=== PATIENT | male | born 1970 | race Two or more races ===

== ENCOUNTER 2023-11-07 19:03 | Emergency (ER) | payer BC ==
[2023-11-07] MEDS: Ketorolac 30 MG/ML SDV IVPUSH ONE (20:07)
[2023-11-07 20:10] LABS: APPEARANCE,URINE CLEAR; BILIRUBIN,URINE NEGATIVE (NEGATIVE); COLOR,URINE YELLOW; GLUCOSE,URINE >=1000 mg/dL (NEGATIVE); KETONES,URINE 15 mg/dL (NEGATIVE); LEUKOCYTE ESTERASE,URINE NEGATIVE (NEGATIVE); NITRITE,URINE NEGATIVE (NEGATIVE); OCCULT BLOOD,URINE TRACE-INTACT (NEGATIVE); PROTEIN,URINE NEGATIVE (NEGATIVE); UROBILINOGEN,URINE 0.2 EU/dL (<2.0)
[2023-11-07] MEDS: Sodium Chloride 0.9% 2.5 ML Syringe FLUSH PRN (20:14)
[2023-11-07] MEDS: Sodium Chloride 0.9% 1,000 ML IV ONE ×2 (20:14→21:10)
[2023-11-07] MEDS: Sodium Chloride 0.9% 10 ML Syringe FLUSH PRN (20:14)
[2023-11-07 20:17] LABS: BACTERIA,URINE RARE (NEGATIVE); EPITHELIAL CELLS,URINE RARE (NONE-FEW)
[2023-11-07 20:19] LABS: BASOPHILS ABSOLUTE AUTO 0.07 K/uL (0.00-0.20); BASOPHILS PERCENT AUTO 0.5 % (0.0-1.0); EOSINOPHILS ABSOLUTE AUTO 0.01 K/uL (0.00-0.45); EOSINOPHILS PERCENT AUTO 0.1 % (0.0-6.0); HEMATOCRIT 53.4 % (42.0-52.0); HEMOGLOBIN 17.8 g/dL (14.0-18.0); IMMATURE GRAN ABSOLUTE AUTO 0.06 K/uL (0.00-0.05); IMMATURE GRAN PERCENT AUTO 0.4 % (0.0-0.4); LYMPHOCYTES ABSOLUTE AUTO 1.13 K/uL (1.00-4.80); LYMPHOCYTES PERCENT AUTO 7.7 % (24.0-44.0); MEAN CORPUSCULAR HEMOGLOBIN 28.4 pg (28.0-32.0); MEAN CORPUSCULAR HGB CONC 33.3 g/dL (32.0-36.0); MEAN CORPUSCULAR VOLUME 85.3 fL (83.0-99.0); MEAN PLATELET VOLUME 9.6 fL (9.4-12.4); MONOCYTES PERCENT AUTO 4.1 % (0.0-8.0); NEUTROPHILS ABSOLUTE AUTO 12.77 K/uL (1.80-7.70); NEUTROPHILS PERCENT AUTO 87.2 % (41.0-71.0); PLATELET COUNT,PLT 333 K/uL (150-400); RED BLOOD CELL COUNT 6.26 M/uL (4.52-5.90); WHITE BLOOD CELL COUNT,WBC 14.64 K/uL (3.9-11.3)
[2023-11-07 20:44] LABS: A/G RATIO 1.2 (0.9-1.6); ALBUMIN 4.5 g/dL (3.4-5.0); BILIRUBIN TOTAL 0.9 mg/dL (0.2-1.0); CALCIUM 9.8 mg/dL (8.5-10.1); CARBON DIOXIDE,CO2 25.8 mmol/L (21.0-32.0); CREATININE 1.5 mg/dL (0.8-1.3); EST CRCL DRUG DOSING (CG) 64.36 mL/min; POTASSIUM,K 3.7 mmol/L (3.5-5.1); PROTEIN TOTAL,TP 8.4 g/dL (6.4-8.2)
[2023-11-07] MEDS: Ondansetron 4 MG/2 ML SDV IVPUSH ONE (21:01)
[2023-11-07] MEDS: Morphine 4 MG/ML Syringe IVPUSH ONE (21:04)
[2023-11-07] MEDS: Acetaminophen/HYDROcodone 325-5 MG Tab PO ONE ×2 (21:10→23:45)
[2023-11-07 21:14] LABS: BASE EXCESS VENOUS -2.1 (-2.0-3.0); PH,VENOUS 7.38 (7.31-7.41)
[2023-11-07] MEDS: Sodium Chloride 0.9% 2,000 ML IV ONE (22:29)
[2023-11-07] MEDS ORDERED: 50% Dextrose in Water 50 ML Syringe IVPUSH PRN (23:01)
[2023-11-07] MEDS ORDERED: Glucagon,Human Recombinant 1 MG Vial IM PRN (23:01)
[2023-11-07] MEDS: Insulin Regular, Human 100 Units/ML 10 ML Vial IVPUSH ONE (23:07)
[2023-11-07] MEDS ORDERED: Morphine 2 MG/ML SYRINGE IVPUSH PRN (23:37)
[2023-11-07 23:47] LABS: HEMOGLOBIN A1C 13.3 %
[2023-11-08] MEDS: cefTRIAXone 2 GM in Sodium Chloride 0.9% 50 ML IV ONE (00:29)
[2023-11-08] MEDS ORDERED: Glucagon,Human Recombinant 1 MG Vial IM PRN (00:43)
[2023-11-08] MEDS ORDERED: 50% Dextrose in Water 50 ML Syringe IVPUSH PRN (00:43)
[2023-11-08] MEDS: Insulin Regular, Human 100 Units/ML 10 ML Vial IVPUSH ONE (01:02)
== END 2023-11-08 02:27 | disposition left against medical advice (07) ==
LOC: MW.ED 19:03
DX: N12 Tubulo-interstitial nephritis, not specified as acute or chronic (principal); E11.9 Type 2 diabetes mellitus without complications; I10 Essential (primary) hypertension; Z79.899 Other long term (current) drug therapy; Z79.4 Long term (current) use of insulin
CPT/HCPCS: 36415; 74176; 80053; 81001; 82009; 82803; 82947; 83036; 83690; 85025; 87040; 87086; 96361; 96365; 96375; 99284; A9270; J0696; J1885; J2405; J3490; J7030; J1815-GY